=== PATIENT | female | born 1990 | race African-American/Black ===

== ENCOUNTER 2017-04-20 18:45 | Emergency (ER) | payer SELFPAY ==
[~2017-04-20] VITALS: Ht 172.7 cm; Wt 91.0 kg
[2017-04-20 18:55] VITALS: BP 151/99
[2017-04-21] MEDS ORDERED: CEFTRIAXONE SODIUM 1 G/VIAL IM ONE
[2017-04-21] MEDS ORDERED: KETOROLAC 60MG/2ML VIAL IM ONE
[2017-04-21] MEDS ORDERED: LIDOCAINE HCL 1% 20ML VIAL (Pyxis) INJ MC ONE
== END 2017-04-21 00:27 | disposition home or self-care (01) ==
LOC: ER 18:45
DX: L03.116 Cellulitis of left lower limb (principal); L03.115 Cellulitis of right lower limb
CPT/HCPCS: 96372; 99284; J0696; J1885; J3490